=== PATIENT | male | born 1995 | race Caucasian/White ===

== ENCOUNTER 2024-01-10 17:36 | Emergency (ER) | payer SELFPAY ==
[2024-01-10] MEDS: Benzocaine 20% Topical Spray UD MUCMEM ONE (18:55)
[2024-01-10] MEDS: Lidocaine 2% Viscous Solution 15 ML UD PO ONE (18:55)
[2024-01-10] MEDS: Acetaminophen/HYDROcodone 325-5 MG Tab PO ONE (18:55)
== END 2024-01-10 18:59 | disposition home or self-care (01) ==
LOC: MW.ED 17:36
DX: K08.89 Other specified disorders of teeth and supporting structures (principal)
CPT/HCPCS: 99282; A9270; 99283